=== PATIENT | male | born 1985 | race Caucasian/White ===

== ENCOUNTER 2017-09-09 00:28 | Emergency (ER) | payer OTHER ==
--- NOTE | 2017-09-09 00:37 | ER Report ---
History and Physical Time Seen By MD: 00:37 HPI/ROS CHIEF COMPLAINT: Vomiting HISTORY OF PRESENT ILLNESS: 32-year-old male brought in by his newly , on their wedding night. Patient had 4-5 alcoholic drinks. He began vomiting about 11 PM. He's vomited 3 times total. It's been green bilious fluid. Patient is severely weak and dizzy. He notes no headache, no blurry vision, no speech changes. Patient has no past medical history except for some GERD symptoms. He takes [id number] PPI. REVIEW OF SYSTEMS: Respiratory: No cough, no dyspnea. Cardiovascular: No chest pain, no palpitations. Gastrointestinal: As above Musculoskeletal: No back pain. Allergies: Coded Allergies: No Known Drug Allergies (Unverified , 09/09/17) Home Meds Active Scripts Ondansetron (ZOFRAN ODT) 4 Mg Tab.rapdis, 4 MG PO every 6 hours Y for NAUSEA/ VOMITING, #10 TAB TAKE 1 TABLET BY MOUTH EVERY 12 HOURS Prov:MCKENZIE OCONNOR DO 09/09/17 Reported Medications [omeprazole] No Conflict Check 09/09/17 Reviewed Nurses Notes: Yes Old Medical Records Reviewed: Yes Constitutional Vital Sign - Last 24 Hours 09/09/17 09/09/17 09/09/17 09/09/17 00:32 00:35 00:43 00:55 Temp 97.6 Pulse 83 93 Resp 13 16 B/P (MAP) 133/95 (108) 126/92 (103) 126/92 Pulse Ox 87 93 O2 Delivery Room Air 09/09/17 09/09/17 09/09/17 09/09/17 00:58 01:00 01:13 01:18 Pulse 84 85 93 Resp 25 14 13 B/P (MAP) 120/87 (98) Pulse Ox 94 91 95 09/09/17 09/09/17 09/09/17 09/09/17 01:23 01:30 01:53 01:59 Pulse 104 94 Resp 30 B/P (MAP) ???/??? (1665) 110/76 (87) Pulse Ox 93 09/09/17 09/09/17 09/09/17 09/09/17 02:08 02:23 02:30 02:38 Pulse 92 104 91 Resp 17 22 15 B/P (MAP) 111/77 (88) Pulse Ox 91 91 09/09/17 09/09/17 02:53 03:04 Pulse 99 Resp 17 B/P (MAP) 114/82 (93) Pulse Ox 93 Physical Exam General Appearance: The patient is alert, has no immediate need for airway protection and no current signs of toxicity. Vital signs stable, afebrile, pulse ox normal, slightly pale appearing, skin warm and dry HEENT: Pupils equal and round no injection. Oropharynx Respiratory: Chest is non tender, lungs are clear to auscultation. Cardiac: regular rate and rhythm Gastrointestinal: Abdomen is soft and non tender, no masses, bowel sounds normal. Musculoskeletal: Neck: Neck is supple and non tender. No lymphadenopathy, no meningismus Extremities have full range of motion and are non tender. Skin: No rashes or lesions. DIFFERENTIAL DIAGNOSIS: After history and physical exam differential diagnosis was considered for abdominal pain including but not limited to appendicitis, cholecystitis, gastritis, gastroenteritis, food poisoning, viral syndrome, alcohol poisoning and urinary tract infection. Medical Decision Making Data Points Result Diagram: 09/09/17 0044 09/09/17 0044 Laboratory Hematology Test 09/09/17 00:44 09/09/17 01:30 Red Blood Count 5.14 M/uL (4.00-5.60) Mean Corpuscular Volume 86.3 fL (80.0-96.0) Mean Corpuscular Hemoglobin 30.8 pg (26.0-33.0) Mean Corpuscular Hemoglobin Concent 35.7 g/dL (32.0-36.0) Red Cell Distribution Width 12.4 % (11.5-14.5) Mean Platelet Volume 7.8 fL (7.2-11.1) Neutrophils (%) (Auto) 47.7 % (39.4-72.5) Lymphocytes (%) (Auto) 44.6 % (17.6-49.6) Monocytes (%) (Auto) 5.8 % (4.1-12.4) Eosinophils (%) (Auto) 1.4 % (0.4-6.7) Basophils (%) (Auto) 0.5 % (0.3-1.4) Nucleated RBC Relative Count (auto) 0.1 /100WBC Neutrophils # (Auto) 3.9 K/uL (2.0-7.4) Lymphocytes # (Auto) 3.6 K/uL (1.3-3.6) Monocytes # (Auto) 0.5 K/uL (0.3-1.0) Eosinophils # (Auto) 0.1 K/uL (0.0-0.5) Basophils # (Auto) 0.0 K/uL (0.0-0.1) Nucleated RBC Absolute Count (auto) 0.01 K/uL Sodium Level 144 mmol/L (137-145) Potassium Level 3.6 mmol/L (3.5-5.0) Chloride Level 105 mmol/L (98-107) Carbon Dioxide Level 21 mmol/L (22-30) Blood Urea Nitrogen 13 mg/dl (9-21) Creatinine 0.80 mg/dl (0.66-1.25) Glomerular Filtration Rate Calc > 60.0 Whole Blood Glucose 130 mg/DL (75-110) Random Glucose 126 mg/dl (75-110) Calcium Level 9.0 mg/dl (8.4-10.2) Total Bilirubin 0.4 mg/dl (0.2-1.3) Aspartate Amino Transf (AST/SGOT) 29 U/L (0-35) Alanine Aminotransferase (ALT/SGPT) 43 U/L (0-56) Alkaline Phosphatase 89 U/L (0-126) Total Protein 7.6 g/dl (6.3-8.2) Albumin 4.7 g/dl (3.5-5.0) Amylase Level 49 U/L (0-110) Lipase 56 U/L (23-300) Serum Alcohol 164 mg/dl Urine Color Yellow Urine Clarity Clear Urine pH 6.0 pH (4.8-9.5) Urine Specific [place] 1.013 Urine Protein Negative mg/dL (NEGATIVE) Urine Glucose (UA) Negative mg/dL (NEGATIVE) Urine Ketones Trace mg/dL (NEGATIVE) Urine Blood Negative (NEGATIVE) Urine Nitrite Negative (NEGATIVE) Urine Bilirubin Negative (NEGATIVE) Urine Urobilinogen Negative mg/dL (0.2-1.9) Urine Leukocyte Esterase Negative (NEGATIVE) Urine RBC <1 /HPF (0-2/HPF) Urine WBC 1 /HPF (0-5/HPF) Urine Squamous Epithelial Cells None /LPF (</=FEW) Urine Bacteria Negative /HPF (NONE-FEW) Urine Hyaline Casts Few /LPF (NONE-FEW) Urine Mucus Few /HPF (NONE-FEW) Urine Opiates Screen Negative Urine Barbiturates Screen Negative Ur Tricyclic Antidepressants Screen Negative Urine Phencyclidine Screen Negative Urine Amphetamines Screen Negative Urine Benzodiazepines Screen Negative Urine Cocaine Screen Negative Urine Cannabinoids Screen Negative Chemistry Test 09/09/17 00:44 09/09/17 01:30 White Blood Count 8.1 k/uL (4.5-11.0) Red Blood Count 5.14 M/uL (4.00-5.60) Hemoglobin 15.9 g/dL (14.0-18.0) Hematocrit 44.4 % (42.0-52.0) Mean Corpuscular Volume 86.3 fL (80.0-96.0) Mean Corpuscular Hemoglobin 30.8 pg (26.0-33.0) Mean Corpuscular Hemoglobin Concent 35.7 g/dL (32.0-36.0) Red Cell Distribution Width 12.4 % (11.5-14.5) Platelet Count 216 K/uL (150-450) Mean Platelet Volume 7.8 fL (7.2-11.1) Neutrophils (%) (Auto) 47.7 % (39.4-72.5) Lymphocytes (%) (Auto) 44.6 % (17.6-49.6) Monocytes (%) (Auto) 5.8 % (4.1-12.4) Eosinophils (%) (Auto) 1.4 % (0.4-6.7) Basophils (%) (Auto) 0.5 % (0.3-1.4) Nucleated RBC Relative Count (auto) 0.1 /100WBC Neutrophils # (Auto) 3.9 K/uL (2.0-7.4) Lymphocytes # (Auto) 3.6 K/uL (1.3-3.6) Monocytes # (Auto) 0.5 K/uL (0.3-1.0) Eosinophils # (Auto) 0.1 K/uL (0.0-0.5) Basophils # (Auto) 0.0 K/uL (0.0-0.1) Nucleated RBC Absolute Count (auto) 0.01 K/uL Glomerular Filtration Rate Calc > 60.0 Whole Blood Glucose 130 mg/DL (75-110) Calcium Level 9.0 mg/dl (8.4-10.2) Total Bilirubin 0.4 mg/dl (0.2-1.3) Aspartate Amino Transf (AST/SGOT) 29 U/L (0-35) Alanine Aminotransferase (ALT/SGPT) 43 U/L (0-56) Alkaline Phosphatase 89 U/L (0-126) Total Protein 7.6 g/dl (6.3-8.2) Albumin 4.7 g/dl (3.5-5.0) Amylase Level 49 U/L (0-110) Lipase 56 U/L (23-300) Serum Alcohol 164 mg/dl Urine Color Yellow Urine Clarity Clear Urine pH 6.0 pH (4.8-9.5) Urine Specific [place] 1.013 Urine Protein Negative mg/dL (NEGATIVE) Urine Glucose (UA) Negative mg/dL (NEGATIVE) Urine Ketones Trace mg/dL (NEGATIVE) Urine Blood Negative (NEGATIVE) Urine Nitrite Negative (NEGATIVE) Urine Bilirubin Negative (NEGATIVE) Urine Urobilinogen Negative mg/dL (0.2-1.9) Urine Leukocyte Esterase Negative (NEGATIVE) Urine RBC <1 /HPF (0-2/HPF) Urine WBC 1 /HPF (0-5/HPF) Urine Squamous Epithelial Cells None /LPF (</=FEW) Urine Bacteria Negative /HPF (NONE-FEW) Urine Hyaline Casts Few /LPF (NONE-FEW) Urine Mucus Few /HPF (NONE-FEW) Urine Opiates Screen Negative Urine Barbiturates Screen Negative Ur Tricyclic Antidepressants Screen Negative Urine Phencyclidine Screen Negative Urine Amphetamines Screen Negative Urine Benzodiazepines Screen Negative Urine Cocaine Screen Negative Urine Cannabinoids Screen Negative Toxicology Test 09/09/17 00:44 09/09/17 01:30 Serum Alcohol 164 mg/dl Urine Opiates Screen Negative Urine Barbiturates Screen Negative Ur Tricyclic Antidepressants Screen Negative Urine Phencyclidine Screen Negative Urine Amphetamines Screen Negative Urine Benzodiazepines Screen Negative Urine Cocaine Screen Negative Urine Cannabinoids Screen Negative Urinalysis Test 09/09/17 01:30 Urine Color Yellow Urine Clarity Clear Urine pH 6.0 pH (4.8-9.5) Urine Specific [place] 1.013 Urine Protein Negative mg/dL (NEGATIVE) Urine Glucose (UA) Negative mg/dL (NEGATIVE) Urine Ketones Trace mg/dL (NEGATIVE) Urine Blood Negative (NEGATIVE) Urine Nitrite Negative (NEGATIVE) Urine Bilirubin Negative (NEGATIVE) Urine Urobilinogen Negative mg/dL (0.2-1.9) Urine Leukocyte Esterase Negative (NEGATIVE) Urine RBC <1 /HPF (0-2/HPF) Urine WBC 1 /HPF (0-5/HPF) Urine Squamous Epithelial Cells None /LPF (</=FEW) Urine Bacteria Negative /HPF (NONE-FEW) Urine Hyaline Casts Few /LPF (NONE-FEW) Urine Mucus Few /HPF (NONE-FEW) EKG/Imaging Imaging Results: CT scan of the [head] was obtained. The results of the study are no acute findings. The study was read by the radiologist. I viewed the images myself on the PACS system. ED Course/Re-evaluation Clinical Indication for ER IV: Hydration, IV Access ED Course Patient was admitted to an examination room. H&P was done. The differential diagnoses was considered. On clinical exam. Patient has a nonfocal neurologic examination. He's been vomiting for several hours. He consumed alcohol at his wedding. He admits to 4-5 drinks. Patient's complaining of blurry vision., He describes unusual vision illness describes double vision, but then he says cc 1-1/2 images. Patient responded to Zofran and IV fluid hydration. His blood alcohol returned at 164. A CT scan was performed of his head which was unremarkable. Urine tox screen was negative. Results were discussed with him. He is discharged home on clear liquid diet and Zofran. Decision to Disposition Date: Sep 09, 2017 Decision to Disposition Time: 01:01 Depart Departure Latest Vital Signs Vital Signs Date Time Temp Pulse Resp B/P (MAP) Pulse Ox O2 Delivery O2 Flow Rate FiO2 09/09/17 03:04 114/82 (93) 09/09/17 02:53 99 17 93 09/09/17 00:55 97.6 Room Air Impression: Primary Impression: Vomiting Additional Impressions: Abdominal pain Blurry vision, bilateral Condition: Improved Disposition: HOME OR SELF-CARE Referrals: BRITTON CASTANEDA MD New Scripts Ondansetron (ZOFRAN ODT) 4 Mg Tab.rapdis 4 MG PO every 6 hours Y for NAUSEA/VOMITING, #10 TAB TAKE 1 TABLET BY MOUTH EVERY 12 HOURS Prov: MCKENZIE OCONNOR DO 09/09/17 Patient Instructions: Acute Nausea and Vomiting (ED) Additional Instructions: Clear liquid diet for 12-24 hours Follow-up with your primary care physician or return to the ER for any worsening Problem Qualifiers Primary Impression: Vomiting Vomiting type: unspecified Vomiting Intractability: unspecified Nausea presence: unspecified Qualified Codes: R11.10 - Vomiting, unspecified Additional Impressions: Abdominal pain Abdominal location: epigastric Qualified Codes: R10.13 - Epigastric pain MCKENZIE OCONNOR DO Sep 09, 2017 00:37
[2017-09-09] MEDS ORDERED: NS(*) 0.9% 1000 ML BAG 1,000 ML IV ONE (00:39)
[2017-09-09] MEDS ORDERED: ONDANSETRON 4 MG/2 ML VIAL IVP ONE (00:40)
[2017-09-09 00:57] LABS: PLATELET COUNT, AUTOMATED 216 K/uL (150-450)
[2017-09-09] MEDS ORDERED: omeprazole (01:03)
--- NOTE | 2017-09-09 01:55 | RADIOLOGY IMAGING REPORT ---
[place] [facility] [place] NAME: Kendall Abraham : 1985 MR: [id number] V: [id number] EXAM DATE: ORDERING PHYSICIAN: MCKENZIE OCONNOR TECHNOLOGIST: Location: [facility] Patient: Kendall Abraham : 1985 Visit/Account:[id number] Date of Sevice: 09/09/2017 HEAD W/O CONTRAST HISTORY: Double vision COMPARISON STUDIES: None TECHNIQUE: Contiguous axial images were obtained from the skull base to the vertex. One of the [employer] dose optimization techniques was utilized in the performance of this exam: automated exposure co ntrol; adjustment of the mA and/or kv according to patient size; or use of iterative reconstruction t echnique. Specific details can be referenced in the facility's radiology CT exam operational policy. FINDINGS: Hemorrhage: Negative Ventricles / sulci / fissures: Negative Masses / midline shift: Negative White matter: Negative Lewis-white differentiation: Negative Vessels: Negative Extra-axial spaces: Negative Bones/skull base: Negative Visualized mastoid air cells / paranasal sinuses: Negative Scalp and soft tissues: Negative. Other findings: None significant IMPRESSION: 1. No acute intracranial abnormality. Report Dictated By: Dany Puckett MD at 09/09/2017 1:49 AM Report E-Signed By: Dany Puckett MD at 09/09/2017 1:51 AM WSN:[id number]
[2017-09-09] MEDS ORDERED: NS(*) 0.9% 500 ML BAG 500 ML IV ONE (02:10)
[2017-09-09] MEDS ORDERED: ONDA4TAB PO (02:56)
[2017-09-09] MEDS ORDERED: KETOROLAC 30 MG/ML VIAL IVP ONE (03:00)
[2017-09-09] MEDS ORDERED: ONDANSETRON 4 MG ODT TH SL ONE (03:00)
[2017-09-09 03:04] VITALS: BP 114/82
== END 2017-09-09 03:24 | disposition home or self-care (01) ==
LOC: ER 00:32
DX: R11.10 Vomiting, unspecified (principal); R10.13 Epigastric pain; H53.8 Other visual disturbances; F10.10 Alcohol abuse, uncomplicated; Y90.6 Blood alcohol level of 120-199 mg/100 ml
CPT/HCPCS: 36416; 70450; 80305; 80320; 81001; 82150; 82948; 83690; 85025; 96361; 96374; 96375; 99284; J1885; J2405; J7030; J7040; S0119; 82040; 82247; 82310; 82374; 82435; 82565; 82947; 84075; 84132; 84155; 84295; 84450; 84460; 84520